=== PATIENT | male | born 1960 | race Caucasian/White ===

== ENCOUNTER 2020-08-21 23:29 | Inpatient (IN) | payer MEDICAID ==
[~2020-08-21] VITALS: Ht 172.7 cm; Wt 50.4 kg
[2020-08-21 23:30] VITALS: BP 112/62
[2020-08-21] MEDS ORDERED: LIPITOR40 MG PO (23:49)
[2020-08-21] MEDS ORDERED: ASA81BEC PO (23:49)
[2020-08-21] MEDS ORDERED: BENZTROPINE MES1 MG PO (23:50)
[2020-08-21] MEDS ORDERED: B COMPLEX1 EACH PO (23:50)
[2020-08-21] MEDS ORDERED: B12 ACTIVE1000 MCG PO (23:51)
[2020-08-21] MEDS ORDERED: NEURONTIN 300M300 M2 PO (23:51)
[2020-08-21] MEDS ORDERED: IRON325 M1 PO (23:51)
[2020-08-21] MEDS ORDERED: HALDOL 0.5 MG0.5 MG PO (23:52)
[2020-08-21] MEDS ORDERED: KEPPRA XR500 MG PO (23:53)
[2020-08-21] MEDS ORDERED: NORCO 5-325 TA1 EAC2 PO (23:54)
[2020-08-21] MEDS ORDERED: VITAMIN B-1100 M2 PO (23:57)
[2020-08-21] MEDS ORDERED: OLANZAPINE10 M1 PO (23:57)
[2020-08-21] MEDS ORDERED: SENNA PLUS TAB1 EACH PO (23:57)
[2020-08-22 00:43] LABS: HEMATOCRIT 37.2 % (42.0-52.0); HEMOGLOBIN 12.4 gm/dL (14.0-18.0); MCH 30.9 pg (26.0-34.0); MCHC 33.3 g/dL (28.0-37.0); RDW-CV 14.4 % (10.5-14.5); WBC 4.5 thou/uL (4.0-11.0)
[2020-08-22 00:50] LABS: CALCIUM 8.5 mg/dL (8.5-10.1); CREATININE 0.8 mg/dL (0.6-1.3); POTASSIUM 3.8 mmol/L (3.5-5.1)
[2020-08-22 00:54] LABS: ALBUMIN 2.9 g/dL (3.4-5.0); TOTAL BILIRUBIN 0.5 mg/dL (<0.1-1.0); TOTAL PROTEIN 7.2 g/dL (6.4-8.2)
[2020-08-22 05:40] VITALS: BP 119/69
[2020-08-22 08:00] VITALS: BP 104/70
[2020-08-22 08:05] VITALS: BP 103/63
[2020-08-22 10:08] LABS: CALCIUM 7.7 mg/dL (8.5-10.1); CREATININE 0.5 mg/dL (0.6-1.3); POTASSIUM 3.7 mmol/L (3.5-5.1)
[2020-08-22 10:12] LABS: MAGNESIUM 1.8 mg/dL (1.8-2.4); PHOSPHORUS* 3.2 mg/dL (2.5-4.9)
--- NOTE | 2020-08-22 15:58 | NUR ---
PTS SON BROOK KYLAH [phone] CALLED AND WAS UPDATED ON PTS STATUS AND PLAN OF CARE.
[2020-08-22 16:30] VITALS: BP 104/59
--- NOTE | 2020-08-22 16:59 | NUR ---
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 MORE ALERT LATER IN SHIFT, PATIENT CONFUSED - GRABBING AT ITEMS, HANGING LEGS OVER SIDE OF BED. PATIENT NEAR NURSES STATION DUE TO FALL RISK FOR CLOSE MONITORING. FEEDER FOR MEALS, TOLERATING PUREED DIET, MEDS CRUSHED IN APPLESAUCE. VITALS WNL. ROOM AIR WITH 02 SAT 100%. BROTHER KEE CALLING A FEW TIMES GIVEN UPDATE ON PATIENT CONDITION. ABLE TO VERBALIZE COUPLE OF WORDS/MUMBLE AT TIMES. HOB ELEVATED, CALL LIGHT WTIHIN REACH. WILL MONITOR.
--- NOTE | 2020-08-22 17:21 | EKG ---
[place] [address] ELECTROCARDIOGRAM REPORT Name: BROOK MONTERO Room: [place] [address] ADM IN [facility].#: [id number] Admission: 08/22/20 Attend Phys: Ting Reddy, Discharge: Date of : 58 Date of Service: 08/22/20 0008 Report #: [id number] THIS REPORT FOR: //name// [facility] ED Test Date: 2020-08-22 Test Time: 00:08:25 Pat Name: BROOK OMNTERO Department: Room: [facility] Gender: M Shape Carver: MR : 1960 Requested By: Honorio Michelle Order Number: [id number] MD: Jose Raul Mckinney Measurements Intervals [place] Rate: 107 P: 0 AK: 56 QRS: -20 QRSD: 178 T: 33 QT: 344 QTc: 459 Interpretive Statements Sinus tachycardia Short AK interval Borderline ST depression, lateral leads Artifact in lead(s) I,II,III,aVR,aVL,aVF,V1,V2,V4,V5 and baseline wander in lead(s (s) V5,V6 No previous ECG available for comparison Electronically Signed On 08-22-2020 17:21:14 SECURITY DOOR INSTALLER by Jose Raul Mckinney [email or web address] <ELECTRONICALLY SIGNED> By: Jose Raul Mckinney MD, [facility] 08/22/20 1721 0008 Jose Raul Mckinney MD, [facility] /EPI
--- NOTE | 2020-08-22 21:40 | NUR ---
PATIENT INCONTINENT OF STOOL AND URINE. PATIENT WAS CLENSED AND CHANGED.
[2020-08-22 23:39] VITALS: BP 114/67
[2020-08-23 03:30] VITALS: BP 93/48
[2020-08-23 10:07] VITALS: BP 102/52
--- NOTE | 2020-08-23 10:10 | NUR ---
I ASSUMED CARE OF THE PATIENT AT 0700. HE IS AWAKE AND ALERT, BUT NOT ORIENTED. BED IS IN THE LOW LOCKED POSITION AND CALL LIGHT IS IN REACH. BED ALARM IS ON. PATIENT WAS REPOSITIONED AND LINENS WERE CHANGED AFTER AN EPISODE OF INCONT B/B. MEDS WERE GIVEN CRUSHED IN APPLESAUCE, AND HE IS A FEEDER. MEDS WERE GIVEN PER EMAR. OXYGEN WAS TITRATED FROM 4L TO 3L. REPORT GIVEN AT 1015 TO ARDEN CODY. ISOLATION WAS MAINTAINED.
[2020-08-23 12:15] VITALS: BP 132/76
[2020-08-23 12:29] LABS: URINE BILIRUBIN NEGATIVE (Negative); URINE BLOOD 3+ (Negative); URINE CLARITY HAZY; URINE COLOR YELLOW; URINE GLUCOSE-RANDOM NEGATIVE (Negative); URINE KETONES NEGATIVE (Negative); URINE LEUKOCYTES-REFLEX NEGATIVE (Negative); URINE NITRITE-REFLEX NEGATIVE (Negative); URINE PROTEIN NEGATIVE (Negative); URINE SPECIFIC GRAVITY 1.025 (1.005-1.030); URINE UROBILINOGEN 0.2 E.U./dl (0.2-1.0)
[2020-08-23 12:40] LABS: SQUAMOUS 0-3 Few /LPF (0-3)
[2020-08-23 12:41] LABS: BACTERIA-REFLEX None Seen /HPF (None Seen); CRYSTALS None Seen /LPF (None Seen); HYALINE CASTS 0-3 Few /LPF (None Seen); MUCUS 0-3 Light strn/LPF (None Seen); URINE RBC >20 Many /HPF (0-2); URINE WBC-REFLEX None Seen /HPF (0-5)
--- NOTE | 2020-08-23 16:01 | NUR ---
PT WEDGED TO THE RIGHT SIDE AT THIS TIME. PT BEDDING WAS CHANGED AND REARRANGED, AND PT WAS OFFERED WATER.
[2020-08-23 17:51] VITALS: BP 110/56
--- NOTE | 2020-08-23 18:41 | NUR ---
PT TRANSFER FROM ED ONLY ATE A FEW BITES OF DINNER PT ONLY SAID A FEW WORDS ALERT AND ORIENTED TO SELF FC IN PLACE PT ON LEFT SIDE DOES NOT SEEM DISTRESSED OR UNCOMFORTABLE PT IS INCONTINENT OF BOWEL HAD BMS TODAY DIARRHEA PER NURSE CALL LIGHT IN REACH BUT PT DOES NOT USE APPROPRIATELY HIGH FALL RISK RESTLESS AND MOVES IN BED A LOT
[2020-08-23 20:10] VITALS: BP 131/65
[2020-08-24] VITALS (7 sets, daily range): BP systolic 90–141; BP diastolic 52–71
--- NOTE | 2020-08-24 05:46 | NUR ---
PT SLEPT WELL AFTER HS MEDS, TAKES MED CRUSHED WITH PUREE. NONVERBAL BUT TRACKS WITH EYES. SUE DRAINING YELLOW URINE. LFA SL IV, SOLUMEDROL GIVEN ORDERED. ROOM AIR SAT 95%. PT TURNED AND REPOSITIONED Q2 HOURS AND PRN FOR SKIN CARE AND COMFORT, WOUND TO SACRUM-PHOTOS TAKEN. AM LABS DRAWN. DNRRena KELLY ON MONITOR.BED ALARM ON FOR SAFETY. NO APPARENT PAIN.
[2020-08-24 05:49] LABS: HEMATOCRIT 36.9 % (42.0-52.0); HEMOGLOBIN 12.2 gm/dL (14.0-18.0); MCH 30.5 pg (26.0-34.0); MCHC 33.1 g/dL (28.0-37.0); MCV 92.2 fL (80.0-100.0); MPV 8.4 fl. (7.2-11.1); RDW-CV 14.5 % (10.5-14.5); WBC 4.4 thou/uL (4.0-11.0)
[2020-08-24 06:09] LABS: ALBUMIN 2.7 g/dL (3.4-5.0); CALCIUM 8.7 mg/dL (8.5-10.1); CREATININE 0.5 mg/dL (0.6-1.3); MAGNESIUM 1.9 mg/dL (1.8-2.4); POTASSIUM 3.6 mmol/L (3.5-5.1); TOTAL BILIRUBIN 0.4 mg/dL (<0.1-1.0); TOTAL PROTEIN 6.9 g/dL (6.4-8.2)
--- NOTE | 2020-08-24 18:49 | NUR ---
PT IS ALERT AND ORIENTED TO SELF ONLY USES FEW WORDS SLEPT FOR MOST OF THE DAY BUT BECAME RESTLESS TRYING TO GET OUT OF BED FC CONTINUES WITH SHEILA URINE GOOD APPETITE T/O DAY CALL LIGHT IN REACH BUT DOES NOT USE PT IS A DNR SR MAINLY SB ON THE MONITOR LOW 30S AT TIMES
[2020-08-25 00:45] VITALS: BP 124/68
[2020-08-25 05:02] VITALS: BP 151/77
--- NOTE | 2020-08-25 05:12 | NUR ---
PT SLEPT WELL OVERNIGHT AFTER TAKING HS MEDS CRUSHED IN APPLESAUCE. SUE DRAINING YELLOW URINE. LAC SL IV, SOLUMEDROL GIVEN ORDERED. PT MOVES ABOUT IN BED, RESTLESS AT TIMES. ATTEMPTED EKG X2 THIS SHIFT, BUT PT BECOMES RESTLESS, MILDLY COMBATIVE WITH ATTEMPTS-RESULTS ON CHART. AM LABS. DNR. PT ALERT, ANSWERS QUESTIONS "YEAH" SOMETIMES BUT OTHERWISE NONVERBAL. ROOM AIR. TELE SB OVERNIGHT-HISTORY OF BRADYCARDIA, CARDIOLOGY TO SEE. BED ALRM ON FOR SAFETY. REMAINS ON COVID UNIT ISOLATION.
[2020-08-25 09:00] VITALS: BP 116/61
[2020-08-25 11:21] LABS: CALCIUM 8.5 mg/dL (8.5-10.1); CREATININE 0.5 mg/dL (0.6-1.3)
--- NOTE | 2020-08-25 11:50 | NUR ---
WOUND NURSE: PATIENT SEEN TO ADDRESS 2 SMALL STAGE 2 PRESSURE INJURIES, EACH MEASURING 0.5 X 0.5 X 0.1 CM. PRESENTS WITH PARTIAL THICKNESS TISSUE LOSS, SCANT SEROUSANGUINOUS DRAINAGE, NO PERIWOUND REDNESS, WARMTH, OR INDURATION. CLEANSED WITH SOAP AND WATER, RINSED WITH WATER, PATTED DRY. APPLIED SKIN PREP TO PERIWOUND TISSUE AND EXUDERM LP TO WOUND AREA, THEN SECURED IN PLACE USING SURESITE TRANSPARENT DRESING. THIS WAS TOLERATED WELL BY THIS NONCOMMUNICATIVE AND NONTEACHEABLE PATIENT. PATIENT IS ON A TURN SCHEDULE.
[2020-08-25 14:36] VITALS: BP 98/46
--- NOTE | 2020-08-25 16:37 | EKG ---
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 /EPI
[2020-08-25 16:41] VITALS: BP 100/63
--- NOTE | 2020-08-25 16:42 | EKG ---
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: [facility] : 1960 Requested By: Ting Reddy Order Number: [id number] Joan MD: Samson Leone Measurements Intervals [place] Rate: 170 P: [place]: QRS: -7 QRSD: 101 T: QT: 263 QTc: 443 Interpretive Statements Rhythm appears to be sinus Marked baseline artifact Low voltage, extremity leads Nonspecific T abnormalities, diffuse leads Artifact in lead(s) V1,V2,V3,V4,V5,V6 Compared to ECG 08/24/2020 19:39:38 Low QRS voltage now present T-wave abnormality now present Electronically Signed On 08-25-2020 16:42:20 VISUALLY IMPAIRED TEACHER by Samson Leone [email or web address] <ELECTRONICALLY SIGNED> By: Samson Leone MD, [facility] 08/25/20 1642 0418 Samson Leone MD, [facility] /EPI
--- NOTE | 2020-08-25 18:14 | NUR ---
PT IS ALERT TO SELF ONLY , FEW WORDS SPOKEN , CAN BE AGGRESSIVE AT TIMES AND GRAB OR SWING WHEN TOUCHED GOOD APPETITE WHEN FED MEDS CRUSHED IN PUDDING TURN Q2 HOURS FOR WOUND ON SACRUM WOUND CARE SAW TODAY NO APPARENT PAIN NOTED CALL LIGHT IN REACH BUT DOES NOT USE
[2020-08-25 19:30] VITALS: BP 114/71
[2020-08-26] VITALS: BP 138/78
[2020-08-26 04:00] VITALS: BP 123/64
--- NOTE | 2020-08-26 04:55 | NUR ---
ASSUMED PT'S CARE HS SHIFT. PT NONVERBAL. ABLE TO HOLD HANDS. EASY TO SOOTH THIS SHIFT. MEDS GIVEN IN CHOCOLATE PUDDING. Q2 TURN. SUE FOR VOIDING. FALL PRECAUTIONS IN PLACE. WILL CONTINUE TO MONITOR.
[2020-08-26 07:30] VITALS: BP 140/77
[2020-08-26] MEDS ORDERED: AZITHROMYCIN 2250 MG PO (10:11)
[2020-08-26] MEDS ORDERED: CEFDINIR300 MG PO (10:11)
[2020-08-26] MEDS ORDERED: CORTEF10 MG PO (10:11)
[2020-08-26] MEDS ORDERED: OMEPRAZOLE40 MG PO (10:11)
--- NOTE | 2020-08-26 11:36 | NUR ---
PT.HAS DISCHARGE ORDERS FOR TODAY. SENT IN FROM [facility]. CALLED CHRISTOPHER/ADMISSIONS [phone]. SHE SAID PT.WAS STAYING THERE WHILE HE WAS COVID NEG. BUT THEN GOT SICK AND SENT TO HOSPITAL. HE ACTUALLY IS FROM [facility] IN [place]. AMBAR CALLED GERDA/[facility] AND SPOKE WITH [phone]. FAXED HER H&P,CONSULT AND DISCHARGE SUMMARY WITH MED ORDERS TO [phone]. SHE WILL CALL AMBAR BACK TO LET KNOW ABOUT TRANSPORTATION.
--- NOTE | 2020-08-26 12:30 | NUR ---
CALL FROM [facility]. SHE SAID THEY CAN ACCEPT PT.BACK. HE WILL NEED TO GO BY [facility]. CALL TO [employer] [phone]. RUM PROCESSING OPERATOR SAID THEY SEND ALL COVID PTS BY [facility]. INFORMAITON GIVEN. TRIP #[id number]. THEY HAVE BETWEEN 1230-3:30 TO [employer] HANDSTITCHING MACHINE. CHART COPIED TO GO WITH PT. NURSING TO CALL REPORT. CM CALLED PT'S BROTHER/DPOA KEE MONTERO TO INFORM OF DISCHARGE AND THAT PT. WOULD BE GOING TO [facility] AND NOT [facility].
[2020-08-26 12:57] VITALS: BP 121/61
--- NOTE | 2020-08-26 13:40 | NUR ---
PT AWAKE/ALERT FOR AM ASSESSMENT. PT REMAINS NON-VERBAL. PT GRABS AT NURSING STAFF HANDS DURING CARES. PILLS ADMINISTERED CRUSHED, IN CHOCOLATE PUDDING. PT HAS NO IV ACCESS. PT IS Q2H TURN FOR SKIN INTEGRITY. PT INCONTINENT OF B/B. SUE IN PLACE, PATENT. YELLOW URINE VISIBLE IN COLLECTION BAG. PT SINUS LETICIA ON MONITOR. DRESSING TO BOTTOM C/D/I. THIS NURSE ATTEMPTED X2 TO CALL REPORT TO PT FACILITY. NO ANSWER AND NO VOICEMAIL AVAILABLE. TRANSPORTATION ARRIVED APPROX 1330. PT LEFT UNIT ON STRETCHER, MASK IN PLACE. PAPERWORK WITH MEDICS.
== END 2020-08-26 13:40 | DRG 177 ==
LOC: M.ERS 23:29 → M.TBA-ER 08-22 01:49 → M.ORTHSURG 08-23 18:39
PROVIDERS: Emergency Medicine Emergency Medical Services; Internal Medicine; ADMIT Internal Medicine; ATTEND Internal Medicine
DX: U07.1 COVID-19 (principal); G92 Toxic encephalopathy; E43 Unspecified severe protein-calorie malnutrition; J12.89 Other viral pneumonia; E87.2 Acidosis; Z68.1 Body mass index [BMI] 19.9 or less, adult; E27.40 Unspecified adrenocortical insufficiency; F32.9 Major depressive disorder, single episode, unspecified; I95.9 Hypotension, unspecified; G40.909 Epilepsy, unspecified, not intractable, without status epilepticus; E78.5 Hyperlipidemia, unspecified; F03.90 Unspecified dementia, unspecified severity, without behavioral disturbance, psychotic disturbance, mood disturbance, and anxiety; G47.00 Insomnia, unspecified; Z66 Do not resuscitate; Z79.82 Long term (current) use of aspirin; Z79.899 Other long term (current) drug therapy